=== PATIENT | female | born 1980 | race American Indian/Alaskan Native ===

== ENCOUNTER 2018-04-21 12:37 | Emergency (ER) | payer BC, OTHER ==
[2018-04-21 13:03] VITALS: BP 136/84
[2018-04-21] MEDS ORDERED: Ondansetron 4 MG/2 ML SDV IVPUSH ONE (13:24)
[2018-04-21] MEDS ORDERED: Sodium Chloride 0.9% 10 ML Syringe FLUSH PRN ×2 (13:24→14:09)
[2018-04-21] MEDS ORDERED: Lactated Ringers 1,000 ML IV ONE (13:28)
[2018-04-21] MEDS ORDERED: Morphine 2 MG/ML Syringe IVPUSH ONE (13:31)
[2018-04-21] MEDS ORDERED: diphenhydrAMINE 50 MG/ML SDV IVPUSH ONE (13:31)
--- NOTE | 2018-04-21 13:49 | EDM.PDOC ---
ED HPI GENERAL MEDICAL PROBLEM - General Chief Complaint: Abdominal Pain Stated Complaint: R SIDE PAIN Time Seen by Provider: 04/21/18 13:17 Source of Information: Reports: Patient History Limitations: Reports: No Limitations - History of Present Illness INITIAL COMMENTS - FREE TEXT/NARRATIVE: 37-year-old female presents for evaluation and treatment of right lower quadrant abdominal pain. Reports the pain started last night around 1830. She states the pain is worsening reports the pain is currently a 7 or 8 out of 10. Reports a sudden onset. She reports associated symptoms of nausea and one episode of vomiting last night after eating a chicken salad. She reports chills and she states that she had a bowel movement yesterday but states it is hard to pass and solid. She does not appreciate any blood in her stool. She denies any fevers, diarrhea, dysuria or any hematuria. She is not appreciated that movement makes the pain worse. She states that squeezing the area seems to help the pain when she releases it gets worse. She reports a decreased appetite, has not had anything to eat or drink today. Reports her last menstrual period just ended on Tuesday. She denies any chance of . No previous abdominal surgeries. 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 Denies: Fever GI/Abdominal: Reports: Abdominal Pain (RLQ), Constipation, Nausea, Vomiting. Denies: Bloody Stool : Reports: No Symptoms, Other (LMP ended Tuesday). Denies: Dysuria, Hematuria ED EXAM, GI/ABD - Physical Exam Exam: See Below Exam Limited By: No Limitations General Appearance: Alert, WD/WN, No Apparent Distress Respiratory/Chest: No Respiratory Distress, Lungs Clear, Normal Breath Sounds Cardiovascular: Normal Peripheral Pulses, Regular Rate, Rhythm, No Murmur GI/Abdominal Exam: Normal Bowel Sounds, Soft, Guarding, Tender (Tenderness to palpation at McBurney's point), Other (Negative psoas and obturator sign. No hip pain with heel percussion). No: Rigid, Rebound Neurological: Alert, Oriented, Normal Cognition Psychiatric: Normal Affect, Normal Mood Skin Exam: Warm, Dry, Normal Color Course - Vital Signs Last Recorded V/S: Last Vital Signs Temp 97.5 F 04/21/18 13:02 Pulse 81 04/21/18 13:02 Resp 20 04/21/18 13:02 BP 136/84 04/21/18 13:02 Pulse Ox 99 04/21/18 13:02 - Orders/Labs/Meds Orders: Active Orders 24 hr Category Date Time Status Peripheral IV Care [RC] . DIRECTED Care 04/21/18 13:28 Active Peripheral IV Insertion Adult [OM.PC] Routine Oth 04/21/18 13:24 Ordered Labs: Laboratory Tests 04/21/18 04/21/18 04/21/18 Range/Units 13:25 13:25 13:25 WBC 5.70 (3.98-10.04) K/mm3 RBC 4.46 (3.98-5.22) M/mm3 Hgb 8.3 L (11.2-15.7) gm/L Hct 29.3 L (34.1-44.9) % MCV 65.7 L (79.4-94.8) fl MCH 18.6 L (25.6-32.2) pg MCHC 28.3 L (32.2-35.5) g/dl RDW Std Deviation 45.3 (36.4-46.3) fL Plt Count 390 H (182-369) K/mm3 MPV 10.2 (9.4-12.3) fl Neutrophils % (Manual) 61 H (40-60) % Band Neutrophils % 0 (0-10) % Lymphocytes % (Manual) 35 (20-40) % Atypical Lymphs % 0 % Monocytes % (Manual) 3 (2-10) % Eosinophils % (Manual) 1 (0.7-5.8) % Basophils % (Manual) 0 L (0.1-1.2) Toxic Granulation 1+ slight Platelet Estimate Adequate Plt Morphology Comment Normal Hypochromasia 1+ slight Anisocytosis 1+ sligh Microcytosis 2+ moderate Ovalocytes 1+ slight RBC Morph Comment Not Reportable Sodium 138 (136-145) mEq/L Potassium 3.7 (3.5-5.1) mEq/L Chloride 106 (98-107) mEq/L Carbon Dioxide 25 (21-32) mEq/L Anion Gap 10.7 (5-15) BUN 10 (7-18) mg/dL Creatinine 0.6 (0.55-1.02) mg/dL Est Cr Clr Drug Dosing 109.78 mL/min Estimated GFR (MDRD) > 60 (>60) mL/min BUN/Creatinine Ratio 16.7 (14-18) Glucose 86 (74-106) mg/dL Calcium 9.3 (8.5-10.1) mg/dL Total Bilirubin 0.4 (0.2-1.0) mg/dL AST 12 L (15-37) U/L ALT 17 (14-59) U/L Alkaline Phosphatase 83 (46-116) U/L C-Reactive Protein 0.4 (<1.0) mg/dL Total Protein 7.5 (6.4-8.2) g/dl Albumin 3.7 (3.4-5.0) g/dl Globulin 3.8 gm/dL Albumin/Globulin Ratio 1.0 (1-2) HCG, Qual Negative (NEGATIVE) Urine Color (Yellow) Urine Appearance (Clear) Urine pH (5.0-8.0) Ur Specific [place] (1.005-1.030) Urine Protein (Negative) Urine Glucose (UA) (Negative) Urine Ketones (Negative) Urine Occult Blood (Negative) Urine Nitrite (Negative) Urine Bilirubin (Negative) Urine Urobilinogen (0.2-1.0) Ur Leukocyte Esterase (Negative) Urine RBC (0-5) /hpf Urine WBC (0-5) /hpf Ur Epithelial Cells (0-5) /hpf Urine Bacteria (FEW) /hpf Urine Mucus (FEW) /hpf 04/21/18 Range/Units 15:15 WBC (3.98-10.04) K/mm3 RBC (3.98-5.22) M/mm3 Hgb (11.2-15.7) gm/L Hct (34.1-44.9) % MCV (79.4-94.8) fl MCH (25.6-32.2) pg MCHC (32.2-35.5) g/dl RDW Std Deviation (36.4-46.3) fL Plt Count (182-369) K/mm3 MPV (9.4-12.3) fl Neutrophils % (Manual) (40-60) % Band Neutrophils % (0-10) % Lymphocytes % (Manual) (20-40) % Atypical Lymphs % % Monocytes % (Manual) (2-10) % Eosinophils % (Manual) (0.7-5.8) % Basophils % (Manual) (0.1-1.2) Toxic Granulation Platelet Estimate Plt Morphology Comment Hypochromasia Anisocytosis Microcytosis Ovalocytes RBC Morph Comment Sodium (136-145) mEq/L Potassium (3.5-5.1) mEq/L Chloride (98-107) mEq/L Carbon Dioxide (21-32) mEq/L Anion Gap (5-15) BUN (7-18) mg/dL Creatinine (0.55-1.02) mg/dL Est Cr Clr Drug Dosing mL/min Estimated GFR (MDRD) (>60) mL/min BUN/Creatinine Ratio (14-18) Glucose (74-106) mg/dL Calcium (8.5-10.1) mg/dL Total Bilirubin (0.2-1.0) mg/dL AST (15-37) U/L ALT (14-59) U/L Alkaline Phosphatase (46-116) U/L C-Reactive Protein (<1.0) mg/dL Total Protein (6.4-8.2) g/dl Albumin (3.4-5.0) g/dl Globulin gm/dL Albumin/Globulin Ratio (1-2) HCG, Qual (NEGATIVE) Urine Color Light yellow (Yellow) Urine Appearance Clear (Clear) Urine pH 7.0 (5.0-8.0) Ur Specific [place] 1.015 (1.005-1.030) Urine Protein Negative (Negative) Urine Glucose (UA) Negative (Negative) Urine Ketones Negative (Negative) Urine Occult Blood Negative (Negative) Urine Nitrite Negative (Negative) Urine Bilirubin Negative (Negative) Urine Urobilinogen 0.2 (0.2-1.0) Ur Leukocyte Esterase Negative (Negative) Urine RBC Not seen (0-5) /hpf Urine WBC Not seen (0-5) /hpf Ur Epithelial Cells 0-5 (0-5) /hpf Urine Bacteria Not seen (FEW) /hpf Urine Mucus Not seen (FEW) /hpf Meds: Medications Discontinued Medications Generic Name Dose Route Start Last Admin Trade Name Freq PRN Reason Stop Dose Admin Diatrizoate Meglum/Diatrizoate Sod 120 ml 04/21/18 14:09 04/21/18 14:34 Gastrografin 37% PO 04/21/18 14:10 90 ml ONETIME ONE Administration Diphenhydramine HCl 25 mg 04/21/18 13:31 04/21/18 13:58 Benadryl IVPUSH 04/21/18 13:32 25 mg ONETIME ONE Administration Lactated Ringer's 1,000 mls @ 999 mls/hr 04/21/18 13:28 04/21/18 13:57 Ringers, Lactated IV 04/21/18 14:28 999 mls/hr .BOLUS ONE Administration Iopamidol 100 ml 04/21/18 14:09 04/21/18 14:34 Isovue-300 (61%) IVPUSH 04/21/18 14:10 100 ml ONETIME ONE Administration Morphine Sulfate 2 mg 04/21/18 13:31 04/21/18 14:02 Morphine IVPUSH 04/21/18 13:32 2 mg ONETIME ONE Administration Ondansetron HCl 4 mg 04/21/18 13:24 04/21/18 13:58 Zofran IVPUSH 04/21/18 13:25 4 mg ONETIME ONE Administration Sodium Chloride 10 ml 04/21/18 13:24 04/21/18 14:00 Saline Flush FLUSH 10 ml ASDIRECTED PRN Administration Keep Vein Open Sodium Chloride 10 ml 04/21/18 14:09 04/21/18 14:34 Saline Flush FLUSH 10 ml ONETIME PRN Administration IV FLUSH - Radiology Interpretation Free Text/Narrative:: CT abdomen and pelvis Technique: Multiple axial sections were obtained from above the dome of the diaphragm inferiorly through the pubic symphysis. Intravenous and oral contrast was utilized. Delayed images were obtained through the bladder. Comparison: Prior CT abdomen and pelvis exam of 07/16/15. Findings: Appendix is seen and is normal in size. Small cyst is noted within the right ovary measuring 2.0 cm which may be physiologic. Slight amount of free fluid is seen within the cul-de-sac which is slightly more than physiologic and may represent change from nonvisualized cyst rupture. Visualized lung bases shows nothing acute. Liver shows no focal parenchymal abnormality. Adrenal glands show no nodule. Gallbladder contains no calcified gallstones. Pancreas appears within normal limits. Spleen appears within normal limits. Kidneys show symmetric contrast enhancement without hydronephrosis or mass. Aorta shows no aneurysmal dilatation. No retroperitoneal adenopathy is seen. No mesenteric abnormalities are seen. No pelvic mass or adenopathy is seen. Delayed images shows contrast within the distal ureters and bladder. Bone window settings were reviewed which appear within normal limits for the patient's age. Impression: 1. Free fluid within the pelvis slightly more than usually seen physiologically. This may relate to a nonvisualized cyst rupture. 2. Appendix is normal in size. 3. CT study of the abdomen and pelvis is otherwise unremarkable. - Re-Assessments/Exams Free Text/Narrative Re-Assessment/Exam: 04/21/18 15:42 Reviewed the labs and imaging with the patient. She reports her pain has improved. The patient's records from previous ER visit. Patient is here in 2014 with similar symptoms. Also found to have an ovarian cyst. She was also anemic at that time. Hemoglobin at that time was 8. I did discuss this with her. She states this is from iron deficiency and she is currently on iron supplementation. Will discharge home with follow-up with OB. Discharge instructions as documented. Departure - Departure Time of Disposition: 15:43 Disposition: Home, Self-Care 01 Condition: Fair Clinical Impression: Ovarian cyst - Discharge Information *PRESCRIPTION DRUG MONITORING PROGRAM REVIEWED*: No *COPY OF PRESCRIPTION DRUG MONITORING REPORT IN PATIENT ASHLEY: No Prescriptions: Acetaminophen/HYDROcodone [[place] 325-5 MG] 1 tab PO Q4H PRN #20 tablet PRN Reason: Pain Instructions: Ovarian Cyst, [id number] Referrals: PCP,None [Primary Care Provider] - Stacey Arteaga MD [Physician] - Forms: ED Department Discharge Additional Instructions: you were given medication in the ER taht can affect your ability to drive and operate machinery. Do not drive or operate machinery within 10 hours of taking prescription narcotic pain medication. Rest. Make sure drink plenty of fluids. [id number] ibuprofen as needed for pain. Do not take more than 3200 mg of ibuprofen from all sources in 1 day. For pain not relieved by ibuprofen you may take [place] one tablet every 4-6 hours. Darien is habit-forming, take as few of these as needed to control your pain. Do not drive or operate machinery within 10 hours of taking [place]. Follow-up with OB within 2 weeks for recheck of your symptoms. Here in [place] recommend Dr. Arteaga. Call [phone] to schedule with her. Please return to the ER if your symptoms change or worsen. - My Orders Last 24 Hours: My Active Orders 04/21/18 13:24 Peripheral IV Insertion Adult [OM.PC] Routine 04/21/18 13:28 Peripheral IV Care [RC] . DIRECTED - Assessment/Plan Last 24 Hours: My Active Orders 04/21/18 13:24 Peripheral IV Insertion Adult [OM.PC] Routine 04/21/18 13:28 Peripheral IV Care [RC] . DIRECTED
[2018-04-21] MEDS ORDERED: Iopamidol 612 MG/ML 100 ML Bottle IVPUSH ONE (14:09)
[2018-04-21] MEDS ORDERED: Diatrizoate Meglumine/Diatrizoate Sodium 37% 120 ML Bottle PO ONE (14:09)
--- NOTE | 2018-04-21 15:05 | CT ---
CT abdomen and pelvis Technique: Multiple axial sections were obtained from above the dome of the diaphragm inferiorly through the pubic symphysis. Intravenous and oral contrast was utilized. Delayed images were obtained through the bladder. Comparison: Prior CT abdomen and pelvis exam of 07/16/15. Findings: Appendix is seen and is normal in size. Small cyst is noted within the right ovary measuring 2.0 cm which may be physiologic. Slight amount of free fluid is seen within the cul-de-sac which is slightly more than physiologic and may represent change from nonvisualized cyst rupture. Visualized lung bases shows nothing acute. Liver shows no focal parenchymal abnormality. Adrenal glands show no nodule. Gallbladder contains no calcified gallstones. Pancreas appears within normal limits. Spleen appears within normal limits. Kidneys show symmetric contrast enhancement without hydronephrosis or mass. Aorta shows no aneurysmal dilatation. No retroperitoneal adenopathy is seen. No mesenteric abnormalities are seen. No pelvic mass or adenopathy is seen. Delayed images shows contrast within the distal ureters and bladder. Bone window settings were reviewed which appear within normal limits for the patient's age. Impression: 1. Free fluid within the pelvis slightly more than usually seen physiologically. This may relate to a nonvisualized cyst rupture. 2. Appendix is normal in size. 3. CT study of the abdomen and pelvis is otherwise unremarkable. Diagnostic code #2
== END 2018-04-21 16:20 | disposition home or self-care (01) ==
LOC: JD.ED 12:37
DX: N83.201 Unspecified ovarian cyst, right side (principal); F17.210 Nicotine dependence, cigarettes, uncomplicated; Z88.8 Allergy status to other drugs, medicaments and biological substances
CPT/HCPCS: 36415; 74177; 80053; 81001; 84703; 85007; 85027; 86140; 96361; 96374; 96375; 99284; J1200; J2270; J2405; J7050; J7120; Q9963; Q9967